=== PATIENT | female | born 1965 | race Two or more races ===

== ENCOUNTER 2024-07-16 09:25 | Day surgery (SDC) | payer MEDICAID, SELFPAY ==
[2024-07-16] VITALS (12 sets, daily range): BP systolic 100–153; BP diastolic 73–103; PULSE 70–88; RESP 12–23; TEMP 36.3–37.6; O2SAT 95–100; BMI 32.5
[2024-07-16] MEDS: DiphenhydrAMINE INJ 50 MG/ML VIAL 25 MG IV (10:54)
[2024-07-16] MEDS: fentaNYL CIT INJ 50 mCg/ML AMP 2ML (ASD USE ONLY) IV (10:54)
--- NOTE | 2024-07-16 11:18 | SUR.PHASEII ---
1106 patient is sleepy and arousable, breathing unlabored, s/p colonoscopy under IV sedation, report received from [facility].
[2024-07-16] MEDS: MIDAZOLAM INJ 1 MG/ML VIAL 2 ML (ASD USE ONLY) 2 MG IV (11:36)
--- NOTE | 2024-07-16 12:06 | SUR.PHASEII ---
1154 patient is awake, alert, breathing unlabored, able to drink water with no nausea or vomiting, able to ambulate to bathroom and pass gas, discharge instructions given in japanese, patient discharged home in wheelchair with all belongings.
== END 2024-07-16 11:54 | disposition home or self-care (01) ==
PROVIDERS: PCP Specialist; Referring Provider Internal Medicine Gastroenterology; Visit Provider Internal Medicine Gastroenterology
PROC: 0DBE8ZX Excision of Large Intestine, Via Natural or Artificial Opening Endoscopic, Diagnostic (ICD-10-PCS; CPT 45380; principal; 2024-07-16 09:45)
DX: D12.5 Benign neoplasm of sigmoid colon (principal); K64.9 Unspecified hemorrhoids; K57.30 Diverticulosis of large intestine without perforation or abscess without bleeding
CPT/HCPCS: 45380; 45385; 81025; A4217; A4649; J1200; J2250; J3010

== ENCOUNTER → 2024-08-08 | Outpatient (CLI) | payer MEDICAID, SELFPAY ==
--- NOTE | 2024-08-08 10:00 | XR_ITS ---
Examination: CT abdomen with intravenous contrast CT pelvis with intravenous contrast 2-D coronal reconstructions 2-D sagittal reconstructions Date and time of exam:August 08, 2024 1110 hours INDICATIONS: Left lower abdominal pain this week. CTDI: vol (mGy) 9.30 DLP: (mGycm) 472 Technique: Multiple axial sections of the abdomen and pelvis have been obtained. 64 slice high-resolution scanner used. 3 mm axial sections have been obtained, post intravenous injection 60 cc [id number] 2-D sagittal, coronal reconstructions obtained. Low dose protocols were performed. One or more of the following dose reduction techniques were used; automated exposure control, adjustment of the mA and/or KV according to patient size, use of iterative reconstruction technique. Findings: No focal liver or splenic lesions No gallstones No pancreatic or adrenal mass No renal or ureteral calculi, no hydronephrosis Aorta normal size Normal appendix No bowel obstruction Left adnexal mass which appears to be fat-containing, 26 mm Dilated endometrial stripe, 28 mm Urinary bladder intact Moderate osteopenia IMPRESSION: Fat-containing left adnexal mass 26 mm, consider dermoid tumor Dilated endometrial stripe 28 mm, recommend transabdominal transvaginal pelvic sonography follow-up
== END | disposition home or self-care (01) ==
PROVIDERS: PCP Specialist; Referring Provider Internal Medicine Gastroenterology; Visit Provider Internal Medicine Gastroenterology
DX: Z12.11 Encounter for screening for malignant neoplasm of colon (principal); R19.09 Other intra-abdominal and pelvic swelling, mass and lump
CPT/HCPCS: 74177; A4649; Q9967